=== PATIENT | female | born 1970 | race Caucasian/White ===

== ENCOUNTER 2020-11-13 15:25 | Emergency (ER) | payer OTHER ==
[~2020-11-13 15:25] MED LIST: BACTRIM DS TAB1 EACH PO; KEFLEX250 MG PO; KEFLEX500 MG PO; NORCO 5-325 TA1 EACH PO
[2020-11-13] MEDS ORDERED: IBUPROFEN800 MG PO (20:02)
[2021-02-21] MEDS ORDERED: SYNTHROID75 MCG PO (14:01)
[2021-02-21] MEDS ORDERED: VITAMIN D350 MC4 PO (14:01)
[2021-02-21] MEDS ORDERED: CRESTOR10 MG PO (14:01)
[2021-02-28] MEDS ORDERED: PERCOCET 5-3251 EACH PO (07:06)
== END 2020-11-13 20:32 | disposition home or self-care (01) ==
LOC: FER 15:25
DX: S92.351A Displaced fracture of fifth metatarsal bone, right foot, initial encounter for closed fracture (principal); Z87.891 Personal history of nicotine dependence; Z88.5 Allergy status to narcotic agent; W22.8XXA Striking against or struck by other objects, initial encounter; Y93.02 Activity, running; Y92.022 Bathroom in mobile home as the place of occurrence of the external cause
CPT/HCPCS: 73630

== ENCOUNTER → 2021-02-28 | Day surgery (SDC) | payer OTHER ==
[~2021-02-28] VITALS: Ht 165.1 cm; Wt 86.2 kg
[~2021-02-28] MED LIST changes: +CRESTOR10 MG PO; +IBUPROFEN800 MG PO; +PERCOCET 5-3251 EACH PO; +SYNTHROID75 MCG PO; +VITAMIN D350 MC4 PO
[2021-02-28 06:52] LABS: HCT 42.9 % (37.0-47.0); HGB 14.2 g/dl (12.5-16.0); MCH 29.7 pg (25.0-31.0); MCHC 33.1 g/dL (32.0-36.0); MCV 89.7 fL (78.0-100.0); MPV 9.8 fL (6.0-9.5); RBC 4.78 M/uL (4.20-5.40); RDW 11.9 % (11.5-14.0); WBC 7.4 K/uL (4.0-10.5)
[2021-02-28 07:08] LABS: ALBUMIN 3.4 g/dL (3.4-5.0); BILIRUBIN - TOTAL 0.4 mg/dL (0.2-1.0); BUN/CREAT RATIO (CALC) 29.5 RATIO; CREATININE 0.61 mg/dL (0.51-0.95); GLOBULIN (CALCULATION) 2.9 g/dL; POTASSIUM 4.2 mmol/L (3.5-5.1); TOTAL PROTEIN 6.3 g/dL (6.4-8.2)
== END | disposition home or self-care (01) ==
LOC: FAS 06:03
PROVIDERS: Orthopaedic Surgery
DX: G56.03 Carpal tunnel syndrome, bilateral upper limbs (principal)
CPT/HCPCS: 36415; 80053; 93005; J1100; J1885; J2250; J2405; J3010; J7120

== ENCOUNTER → 2021-06-06 | Day surgery (SDC) | payer OTHER ==
[~2021-06-06] VITALS: Ht 165.1 cm; Wt 88.9 kg
[~2021-06-06] MED LIST changes: +ASCORBIC ACID500 MG PO; +CALCIUM + VITA1 EACH PO; +NEURONTIN100 MG PO; +ZYRTEC10 M3 PO
== END | disposition home or self-care (01) ==
LOC: FAS 06:01
DX: G56.02 Carpal tunnel syndrome, left upper limb (principal)
CPT/HCPCS: J1100; J1885; J2250; J2405; J2704; J3010; J7120

== ENCOUNTER 2021-11-11 11:18 | Emergency (ER) | payer OTHER ==
[2021-11-11 11:46] LABS: INR 1.05 (0.9-1.2); PROTHROMBIN TIME 13.1 SECONDS (11.8-13.4); PTT 30.4 SECONDS (24.4-34.7)
[2021-11-11 11:52] LABS: BASOPHIL 0.8 % (0-2); EOSINOPHIL 2.7 % (0-5); HCT 39.6 % (37.0-47.0); HGB 13.1 g/dl (12.5-16.0); LYMPHOCYTE 27.9 % (15-48); MCH 29.9 pg (25.0-31.0); MCHC 33.1 g/dL (32.0-36.0); MCV 90.4 fL (78.0-100.0); MONOCYTE 8.8 % (0-12); MPV 10.5 fL (6.0-9.5); NEUTROPHIL 59.6 % (41-80); NRBC 0; PLT 239 K/uL (150-400); RBC 4.38 M/uL (4.20-5.40); RDW 12.4 % (11.5-14.0); WBC 5.1 K/uL (4.0-10.5)
[2021-11-11 12:06] LABS: ALBUMIN 3.9 g/dL (3.4-5.0); ALKALINE PHOSHATASE 74 U/L (46-116); ALT 30 U/L (14-59); AST 14 U/L (15-37); BILIRUBIN - TOTAL 0.5 mg/dL (0.2-1.0); BUN 18 mg/dL (7-18); BUN/CREAT RATIO (CALC) 23.4 RATIO; CHLORIDE 107 mmol/L (98-107); CO2 (BICARBONATE) 24 mmol/L (21-32); CPK 168 U/L (26-192); CREATININE 0.77 mg/dL (0.51-0.95); GLOBULIN (CALCULATION) 2.6 g/dL; GLUCOSE 91 mg/dL (74-106); LIPASE 120 U/L (73-393); MAGNESIUM 2.3 mg/dL (1.8-2.4); POTASSIUM 4.1 mmol/L (3.5-5.1); TOTAL PROTEIN 6.5 g/dL (6.4-8.2)
[2021-11-11 12:07] LABS: LACTIC ACID 1.5 mmol/L (0.4-1.9)
[2021-11-11 12:12] LABS: BILIRUBIN NEGATIVE (NEGATIVE); BLOOD NEGATIVE Ery/uL (NEGATIVE); CLARITY CLEAR (CLEAR); COLOR YELLOW (YELLOW); GLUCOSE (U) NORMAL (NORMAL); LEUKOCYTES 1+ Leu/uL (NEGATIVE); NITRITE NEGATIVE (NEGATIVE); PROTEIN NEGATIVE (NEGATIVE); SPECIFIC GRAVITY <=1.005 (1.001-1.030); UROBILINOGEN 0.2 mg/dL (0.2-1.0)
[2021-11-11 12:15] LABS: AMPHETAMINES NEGATIVE (NEGATIVE); BARBITURATES NEGATIVE (NEGATIVE); ECSTASY (MDMA) NEGATIVE (NEGATIVE); MARIJUANA (THC) NEGATIVE (NEGATIVE); METHADONE NEGATIVE (NEGATIVE); OPIATES NEGATIVE (NEGATIVE); OXYCODONE NEGATIVE (NEGATIVE)
[2021-11-11 12:38] LABS: CORONAVIRUS 2019 SARS-COV-2 NEGATIVE (NEGATIVE); INFLUENZA A NAA NEGATIVE (NEGATIVE)
== END 2021-11-11 16:53 | disposition home or self-care (01) ==
LOC: FER 11:18
PROVIDERS: Emergency Medicine
DX: R07.89 Other chest pain (principal); Z20.822 Contact with and (suspected) exposure to COVID-19; Z87.891 Personal history of nicotine dependence; Z28.310 Unvaccinated for COVID-19; Z88.5 Allergy status to narcotic agent
CPT/HCPCS: 36415; 36600; 70450; 71045; 80053; 80305; 81001; 82140; 82550; 82803; 83605; 83690; 83735; 83880; 84145; 84439; 84443; 84484; 85025; 85610; 85730; 93005; G0480; J2060; U0002

== ENCOUNTER 2021-12-01 20:43 | Emergency (ER) | payer OTHER ==
[2021-12-01 21:17] LABS: BASOPHIL 0.7 % (0-2); EOSINOPHIL 2.5 % (0-5); HCT 41.6 % (37.0-47.0); LYMPHOCYTE 24.1 % (15-48); MCH 29.8 pg (25.0-31.0); MCHC 33.7 g/dL (32.0-36.0); MCV 88.5 fL (78.0-100.0); MONOCYTE 9.9 % (0-12); MPV 10.1 fL (6.0-9.5); NEUTROPHIL 62.5 % (41-80); NRBC 0; PLT 286 K/uL (150-400); RDW 12.2 % (11.5-14.0); WBC 6.9 K/uL (4.0-10.5)
[2021-12-01 21:27] LABS: INR 0.99 (0.9-1.2); PROTHROMBIN TIME 12.5 SECONDS (11.8-13.4); PTT 27.2 SECONDS (24.4-34.7)
[2021-12-01 21:28] LABS: D-DIMER 0.3 ug/mLFEU (0.00-0.41)
[2021-12-01 21:48] LABS: ALBUMIN 4.1 g/dL (3.4-5.0); BILIRUBIN - TOTAL 0.3 mg/dL (0.2-1.0); BUN/CREAT RATIO (CALC) 23.1 RATIO; CREATININE 0.78 mg/dL (0.51-0.95); GLOBULIN (CALCULATION) 3.4 g/dL; MAGNESIUM 2.4 mg/dL (1.8-2.4); POTASSIUM 3.5 mmol/L (3.5-5.1); TOTAL PROTEIN 7.5 g/dL (6.4-8.2)
[2021-12-05] MEDS ORDERED: MELOXICAM15 MG PO (14:21)
[2021-12-05] MEDS ORDERED: TOPAMAX25 MG PO (14:22)
[2021-12-05] MEDS ORDERED: PEPCID AC20 MG PO (14:22)
== END 2021-12-02 00:05 | disposition home or self-care (01) ==
LOC: FER 20:43
PROVIDERS: Emergency Medicine
DX: R00.2 Palpitations (principal); J44.9 Chronic obstructive pulmonary disease, unspecified; Z88.5 Allergy status to narcotic agent
CPT/HCPCS: 36415; 71045; 80053; 83735; 83880; 84443; 84484; 85025; 85379; 85610; 85730; 93005; J2405; J3475; J7030

== ENCOUNTER → 2021-12-14 | Day surgery (SDC) | payer OTHER ==
[~2021-12-14] VITALS: Ht 165.1 cm; Wt 88.9 kg
[~2021-12-14] MED LIST changes: +MELOXICAM15 MG PO; +PEPCID AC20 MG PO; +TOPAMAX25 MG PO
== END | disposition home or self-care (01) ==
LOC: FAS 09:47
DX: Z12.11 Encounter for screening for malignant neoplasm of colon (principal); K52.9 Noninfective gastroenteritis and colitis, unspecified; K64.4 Residual hemorrhoidal skin tags; K21.9 Gastro-esophageal reflux disease without esophagitis; E78.00 Pure hypercholesterolemia, unspecified; E03.9 Hypothyroidism, unspecified; J44.9 Chronic obstructive pulmonary disease, unspecified; Z87.891 Personal history of nicotine dependence; Z86.010 Personal history of colon polyps; Z88.5 Allergy status to narcotic agent
CPT/HCPCS: J2704; J7120